=== PATIENT | female | born 1945 | race Caucasian/White ===

== ENCOUNTER 2021-02-14 09:40 | Outpatient (CLI) | payer MEDICARE, BC | END 2021-02-14 09:41 | disposition home or self-care (01) | LOC: CSHMAMMO 09:40 | PROVIDERS: ATTEND Internal Medicine | DX: Z12.31 Encounter for screening mammogram for malignant neoplasm of breast (principal); Z80.3 Family history of malignant neoplasm of breast | CPT/HCPCS: 77063; 77067 ==

== ENCOUNTER 2022-03-30 10:37 | Outpatient (CLI) | payer MEDICARE, BC | END 2022-03-30 10:38 | disposition home or self-care (01) | LOC: CSHMAMMO 10:37 | PROVIDERS: ATTEND Obstetrics & Gynecology | DX: Z12.31 Encounter for screening mammogram for malignant neoplasm of breast (principal); Z13.820 Encounter for screening for osteoporosis; E28.39 Other primary ovarian failure; M81.0 Age-related osteoporosis without current pathological fracture; Z80.3 Family history of malignant neoplasm of breast; Z98.890 Other specified postprocedural states | CPT/HCPCS: 77063; 77067; 77080 ==

== ENCOUNTER 2024-02-14 09:48 | Outpatient (CLI) | payer MEDICARE, BC | END 2024-02-14 09:49 | disposition home or self-care (01) | LOC: CSHMAMMO 09:48 | PROVIDERS: ATTEND Internal Medicine | DX: Z12.31 Encounter for screening mammogram for malignant neoplasm of breast (principal); Z80.3 Family history of malignant neoplasm of breast; Z98.890 Other specified postprocedural states | CPT/HCPCS: 77063; 77067 ==

== ENCOUNTER 2025-02-15 09:28 | Outpatient (CLI) | payer MEDICARE, OTHER | END 2025-02-15 09:29 | disposition home or self-care (01) | LOC: CSHMAMMO 09:28 | PROVIDERS: ATTEND Internal Medicine | DX: Z12.31 Encounter for screening mammogram for malignant neoplasm of breast (principal); Z80.3 Family history of malignant neoplasm of breast | CPT/HCPCS: 77063; 77067 ==